=== PATIENT | male | born 1940 | race Caucasian/White ===

== ENCOUNTER 2016-06-18 23:36 | Emergency (ER) | payer BC ==
[~2016-06-18] VITALS: Ht 156.2 cm; Wt 64.0 kg
[~2016-06-18 23:36] MED LIST: ALLO300T80 PO; ATEN50TA8 PO; CLC6 PO; IMD/2 PO; LEVO25TA PO; LORA-741 PO; MAGN250T8 PO; PRLSR20 PO; SIME80CH PO; TACR0.5C3 PO; TAMS0.4C59 PO; TRAM-10 PO; ZOLP5TAB6 PO
[2016-06-18 23:44] VITALS: TEMP 36.5; Ht 156.2 cm; Wt 64.0 kg
[2016-06-19] MEDS ORDERED: COLC0.6T54 PO (00:18)
[2016-06-19] MEDS ORDERED: TAMS0.4C38 PO (00:20)
[2016-06-19] MEDS ORDERED: TRAM-10 PO (00:21)
--- NOTE | 2016-06-19 00:27 | EMERGENCY ROOM VISIT NOTE ---
History Report prepared by Sally: Corey Saleem Under the Supervision of: Dr. Yamile Street D.O. First contact with patient: 00:02 Chief Complaint: FEEDING TUBE PROBLEM Stated Complaint: FEEDING TUBE CAME OUT History of Present Illness The patient is a 75 year old male who presents to the Emergency Room with complaints of a feeding tube problem that occurred 2 hours ago. The patient has had a feeding tube in his abdomen for the past four months. This is because the patient had aspiration pneumonia. He does not take anything by mouth. The patient stated that the tube just "fell out." The patient thinks that he has gout in his right foot. He has had gout before. The last time he had a flair up of his gout was a while ago. He just started Colchicine two days ago. He denies any abdominal pain. He has never had the tube replaced before. Source of History: patient Onset: 2 hours ago Position: abdomen (LUQ) Quality: other (GI tube replacement) Timing: constant Associated Symptoms: No abdominal pain Note: The patient has a gout like area of erythema on his right foot. Review of Systems See HPI for pertinent positives & negatives. A total of 10 systems reviewed and were otherwise negative. Past Medical & Surgical Medical Problems: (1) Benign hypertension (2) Cancer of base of tongue (3) Carcinoma of prostate (4) Gastroesophageal reflux disease (5) Gout (6) Lobectomy of lung (7) Malignant tumor of head and/or neck (8) Non-small cell lung cancer (9) Pneumonia (10) RECTAL CANCER (11) Transplantation of liver Family History The patient's family history is not pertinent due to his age. Social History Smoking Status: Former Smoker Alcohol Use: none Drug Use: none Marital Status: Housing Status: lives with family Occupation Status: retired Current/Historical Medications Scheduled Allopurinol (Zyloprim), 300 MG PO DAILY Atenolol (Tenormin), 50 MG PO BID Colchicine (Colchicine), 0.6 MG PO DIRECTED Levothyroxine Sodium (Synthroid), 50 MCG PO DAILY Lorazepam (Ativan), 0.5 MG PO HS Magnesium Oxide (Mg Supplement (Magnesium), 250 MG PO DAILY Omeprazole (Prilosec), 20 MG PO DAILY Tacrolimus (Prograf), 0.5 MG PO BID Tamsulosin Hcl (Flomax), 0.4 MG PO Q2D Zolpidem Tartrate (Zolpidem Tartrate), 1 TAB PO HS Scheduled PRN Loperamide Hcl (Imodium), 2 MG PO Q2H PRN for Diarrhea Simethicone (Gas-X), 1 CAP PO DAILY PRN for Gas or Constipation Tramadol (Ultram), 50 MG PO Q6 PRN for Pain Allergies Coded Allergies: Bacitracin (Verified Allergy, Intermediate, NEOSPORIN-RASH, 06/19/16) Replaces BACITRACIN/NE Neomycin (Verified Allergy, Intermediate, NEOSPORIN-RASH, 06/19/16) Replaces BACITRACIN/NE Polymyxin B (Verified Allergy, Intermediate, NEOSPORIN-RASH, 06/19/16) Replaces BACITRACIN/NE Physical Exam Vital Signs Date Time Temp Pulse Resp B/P Pulse Ox O2 Delivery O2 Flow Rate FiO2 06/19/16 03:39 60 18 122/57 94 Room Air 06/19/16 01:31 61 18 130/61 96 Room Air 06/18/16 23:44 36.5 61 20 143/68 96 Room Air Physical Exam HEENT: Head - normocephalic and atraumatic Pupils are equal, round, and reactive to light. Extraocular eye muscles are intact, and sclera are anicteric. Nose - moist nasal mucosa without discharge. Mouth - moist buccal mucosa. Oropharynx is nonerythematous and there is no tonsillar exudate or edema noted. Neck: Supple; no JVD, nuchal rigidity, cervical lymphadenopathy. 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 Heart: Regular rate and rhythm. There is a normal S1 and S2 with no murmurs, clicks, or gallops appreciated. Lungs: Clear to auscultation bilaterally with no wheezes, rales, or rhonchi. Abdomen: Soft, completely nontender, nondistended, with good bowel sounds. There are no palpable pulsatile masses or hepatosplenomegaly. There is no guarding, rigidity, or rebound noted. Significant leaking from the G-tube site. Extremities: No evidence of cyanosis, clubbing, or edema. There are easily palpable peripheral pulses. There is moderate erythema and warmth noted at the base of the right great toe Skin: warm and dry with good turgor and no rashes. Medical Decision & Procedures ED Course 0002: Past medical records reviewed. The patient was evaluated in room B10. A complete history and physical exam was performed. 0120: I learned that the Mal[place]ot non-balloon G-tubes should not be replaced acutely. I will place a kaminski catheter in the tract and call Dr. Mcnally of General Surgery. 0130: The kaminski catheter was easily inserted. 0135: I spoke with Dr. Mcnally of General Surgery. He does not do this procedure. He said to leave the kaminski in, and that I should talk to Dr. Hernandez in the morning. Dr. Hernandez was the physician who placed the original tube. 0200: The patient informed me that he takes Ambien for sleep. However, he cannot take anything by mouth. 0344: The patient is resting comfortably. 0430: The patient is sleeping. 0630: At the change of shifts, the patient will be signed out to Dr. Fried. Dr. Hernandez will be contacted after 7am Medical Decision The patient is a 75 year old male who presents to the ED with a complication with his feeding tube. The feeding tube has dislodged. Kaminski catheter was placed at this time. I discussed the case with the surgeon on-call and he recommended that I speak with Dr. Hernandez who will be here in the hospital this morning. The patient also complains of pain to the right great toe. His exam is consistent with an acute episode of gout. He has a history of gout for which he takes colchicine. Patient has a history of liver transplant and does not wish to take any other medications such as NSAIDs for the increased pain but did request steroids as they have worked well in the past for him. The patient will be prescribed a tapering dose of prednisone to use as an outpatient. The patient will be signed out at change of shift awaiting discussions with Dr. Hernandez Impression Primary Impression: Dislodged gastrostomy tube Additional Impression: Gout involving toe of right foot Scribe Attestation The scribe's documentation has been prepared under my direction and personally reviewed by me in its entirety. I confirm that the note above accurately reflects all work, treatment, procedures, and medical decision making performed by me. Departure Information Dispostion Still a Patient Referrals Conor Russo M.D. (PCP) Patient Instructions My [facility] Problem Qualifiers
[2016-06-19] MEDS ORDERED: ZOLPIDEM TARTRATE 5 MG TAB PO STA (02:05)
[2016-06-19] MEDS ORDERED: METH4PAK PO (04:55)
[2016-06-19] MEDS ORDERED: XYLOCAINE 1%/SOD BICARB 20 ML VIAL INFIL ONE (07:31)
[2016-06-19 09:10] VITALS: BP 137/64; PULSE 63; O2SAT 94
== END 2016-06-19 09:10 | disposition home or self-care (01) ==
LOC: C.EDB 23:38
DX: K94.23 Gastrostomy malfunction (principal); M10.9 Gout, unspecified; I10 Essential (primary) hypertension; K21.9 Gastro-esophageal reflux disease without esophagitis; Z85.46 Personal history of malignant neoplasm of prostate; Z85.118 Personal history of other malignant neoplasm of bronchus and lung; Z85.810 Personal history of malignant neoplasm of tongue; Z85.048 Personal history of other malignant neoplasm of rectum, rectosigmoid junction, and anus; Z94.4 Liver transplant status; Z87.891 Personal history of nicotine dependence; Z79.899 Other long term (current) drug therapy; Z88.8 Allergy status to other drugs, medicaments and biological substances

== ENCOUNTER → 2016-06-30 | Outpatient (CLI) | payer BC ==
[~2016-06-30] MED LIST changes: -CLC6 PO; +COLC0.6T54 PO; +TAMS0.4C38 PO; -TAMS0.4C59 PO
== END | disposition home or self-care (01) ==
LOC: C.LAB 10:07
PROVIDERS: ATTEND Otolaryngology
DX: C01 Malignant neoplasm of base of tongue (principal)